=== PATIENT | female | born 1990 | race Caucasian/White ===

== ENCOUNTER 2020-12-05 11:57 | Emergency (ER) | payer BC ==
[~2020-12-05] VITALS: Ht 149.9 cm; Wt 99.0 kg
[2020-12-05] MEDS ORDERED: BACITRACIN ZINC TOPICAL OINT PACKET. TP ONE (13:00)
[2020-12-05] MEDS ORDERED: ACETAMINOPHEN 325 MG TABLET PO ONE (13:00)
[2020-12-05] MEDS ORDERED: IBUPROFEN 600 MG TABLET. PO ONE (13:00)
[2020-12-05] MEDS ORDERED: ceFAZolin IM 1 GM VIAL IM ONE (13:00)
--- NOTE | 2020-12-05 13:05 | PHYS DOC ---
Adult General Chief Complaint Chief Complaint: ANIMAL BITE HPI HPI Patient is a 30-year-old female who presents to the emergency department today stating that proximately 45 minutes prior to arrival her small dog bit her left hand. Patient states her dogs immunizations are up-to-date, patient states her last tetanus immunization was 1 year ago. Patient reports a 6 out of 10 pain. Patient states her hand feels a little numb and tingly since the bite. Patient denies any loss of movement of her left hand or fingers. Patient states it bled a little bit and then it has seemed to have clotted off since. Patient denies taking anything for pain prior to arrival to the ER. Patient states she did not wash any of the wounds prior to coming to the ER. Patient states she is a type I diabetic and reports a morning blood sugar of 132, states she takes Humalog for diabetes. Patient denies any other health history. Patient states she sees a Dr. Boom Montes in [place] for primary care. Patient reports a allergy to Stadol, hydrocodone, and Levemir. Patient denies any other physical complaints or physical symptoms. Review of Systems Review of Systems 14 body systems of review of systems have been reviewed. See HPI for pertinent positives and negative responses, otherwise all other systems are negative, nonpertinent or noncontributory. Current Medications Current Medications Current Medications Medications (Trade) Dose Ordered Sig/Anthony Start Time Stop Time Status Last Admin Dose Admin Acetaminophen (Tylenol) 650 mg 1X ONCE 12/05/20 13:00 12/05/20 13:01 UNV Bacitracin (Bacitracin Topical Pkt) 1 pkt 1X ONCE 12/05/20 13:00 12/05/20 13:01 UNV Cefazolin Sodium (Ancef Im) 1 gm 1X ONCE 12/05/20 13:00 12/05/20 13:01 UNV Ibuprofen (Motrin) 600 mg 1X ONCE 12/05/20 13:00 12/05/20 13:01 UNV Physical Exam Physical Exam Constitutional: Well developed, well nourished, no acute distress, non-toxic appearance. 22-year-old female in no apparent distress. HENT: Normocephalic, atraumatic. Eyes: Conjunctiva normal, no discharge. Neck: Normal range of motion. Cardiovascular: No cyanosis appreciated, distal cap refill less than 2 seconds. Lungs & Thorax: Patient is in no respiratory distress, no adventitious lung sounds appreciated audibly. Skin: Warm, dry, no erythema, no rash. See extremity note for skin assessment. Extremities: No tenderness, no cyanosis, no clubbing, ROM intact, no edema. Except for left hand fingers, patient has a 2 mm puncture wound to proximal first digit at finger web palmar aspect, small abrasion to first digit distal aspect ventral surface, small abrasion to middle finger middle phalanx ventral aspect, left thumb lateral aspect small abrasion, no bleeding appreciated, no swelling appreciated, full AROM/PROM of left hand fingers, distal cap refill is less than 2 seconds. No edema appreciated. Neurologic: Alert and oriented X 3, normal motor function, normal sensory function, no focal deficits noted. Psychologic: Affect normal, judgement normal, mood normal. EKG EKG [] Radiology/Procedures Radiology/Procedures [] Heart Score C/O Chest Pain: No Risk Factors: Risk Factors: DM, Current or recent (<one month) smoker, HTN, HLP, family history of CAD, obesity. Risk Scores: Risk Factors: DM, Current or recent (<one month) smoker, HTN, HLP, family history of CAD, obesity. Course & Med Decision Making Course & Med Decision Making Pertinent Labs and Imaging studies reviewed. (See chart for details) 30-year-old female, vital signs reviewed, presents emergency department after her dog bit her hand. The dog's immunizations are up-to-date, low likelihood of rabies infection, rabies prophylaxis not indicated. The patient's tetanus immunization was less than 1 year ago, Adacel DTaP not indicated today. Puncture wound and abrasions to left hand and digits thumb first finger middle finger consistent with dog bite. Will thoroughly irrigate and dress puncture wound and abrasions with bacitracin and Band-Aids. Will give Tylenol and Motrin p.o. for reported 6 out of 10 pain. Will give 1 g Ancef IM for antibiotic prophylaxis coverage, will prescribe Keflex for antibiotic prophylaxis coverage. Recommend daily cleansing and antibiotic application with bandages until healed, patient is a type I diabetic, will order bedside fingerstick blood sugar today in the ER. Will recommend strict follow-up with PCP for reexamination of dog bite wounds. X-ray imaging not indicated. Soft tissues of the hand remain soft, there is no concerning signs of compartment syndrome. Patient left hand soap and Betadine solution for 15 minutes, cleansed and dressed by ED nursing staff. The patient is bedside blood sugar was 164. Patient gave verbal understanding of discharge home instructions, antibiotic use, [id number] Motrin for pain, strict follow-up with primary care for reevaluation of dog bite wounds, daily cleansing and topical antibiotic ointment applications, patient had no further questions or concerns, patient was discharged home without incident. Dragon Disclaimer Dragon Disclaimer This electronic medical record was generated, in whole or in part, using a voice recognition dictation system. Departure Departure: Impression: Primary Impression: Dog bite of left hand Disposition: HOME / SELF CARE / HOMELESS Condition: GOOD Referrals: PCP,NO (PCP) Patient Instructions: Abrasions, Animal Bite, Puncture Wound Additional Instructions: You were seen today in the emergency department reporting that your dog that you on your left hand. There is a small puncture wound to your hand with minor abrasions to your fingers, you may use ice applications 30 minutes on 30 minutes off for pain and swelling over the next 24 to 48 hours, you may use [id number] Tylenol and/or Motrin for pain, please cleanse puncture wound and abrasions daily and apply antibiotic ointment with bandages until healed, please follow-up with your primary care physician Dr. Roni Montes in [facility] this week for reevaluation of your dog bite wound injuries, I have given you 1 g of Ancef intramuscular today in the emergency department for antibiotic prophylaxis, you do not have an infection, this was to help prevent any infection from starting. I am also starting you on a antibiotic called Keflex, you will take it 3 times a day for the next 10 days, this is also for antibiotic prophylaxis. You had indicated your tetanus immunization was less than 5 years ago, there was no indication for updating your tetanus immunization today in the emergency department. Please return to the emergency department for worsening symptoms or other concerns. EMERGENCY DEPARTMENT GENERAL DISCHARGE INSTRUCTIONS Thank you for coming to [facility] (ED) today and trusting us with you care. We trust that you had a positivie experience in our Emergency Department. If you wish to speak to the department management, you may call the director at [phone]. YOUR FOLLOW UP INSTRUCTIONS ARE FOLLOWS: 1. Do you have a private Doctor? If you do not have a private doctor, please ask for a resource list of physicians or clinics that may be able to assist you with follow up care. 2. The Emergency Physician has interpreted your x-rays. The X-Ray specialist will also review them. If there is a change in the findings, you will be notified in 48 hours when at all possible. 3. A lab test or culture has been done, your results will be reviewed and you will be notified if you need a change in treatment. ADDITIONAL INSTRUCTIONS AND INFORMATION: 1. Your care today has been supervised by a physician who is specially trained in emergency care. Many problems require more than one evaluation for a complete diagnosis and treatment. We recommend that you schedule your follow up appointment as recommended to ensure complete treatment of you illness or injury. If you are unable to obtain follow up care and continue to have a problem, or if your condition worsens, we recommend that you return to the ED. 2. We are not able to safely determine your condition over the phone nor are we able to give sound medical advice over the phone. For these safety reasons, if you call for medical advice we will ask you to come to the ED for further evaluation. 3. If you have any questions regarding these discharge instructions please call the ED at [phone]. SAFETY INFORMATION: In the interest of safety, wellness, and injury prevention; we encourage you to wear your sealbelt, if you smoke; quite smoking, and we encourage family to use a protective helmet for bicycling and other sporting events that present an increased risk for head injury. IF YOUR SYMPTOMS WORSEN OR NEW SYMPTOMS DEVELOP, OR YOU HAVE CONCERNS ABOUT YOUR CONDITION; OR IF YOUR CONDITION WORSENS WHILE YOU ARE WAITING FOR YOUR FOLLOW UP APPOINTMENT; EITHER CONTACT YOUR PRIMARY CARE DOCTOR, THE PHYSICIAN WHOSE NAME AND NUMBER YOU WERE GIVEN, OR RETURN TO THE ED IMMEDIATELY. Scripts Cephalexin (CEPHALEXIN) 500 Mg Capsule 1 CAP PO TID for dog bite wounds, #30 CAP 0 Refills Prov: RAUL HOBSON BUSINESS PROGRAMMER 12/05/20 Problem Qualifiers Primary Impression: Dog bite of left hand Encounter type: initial encounter Qualified Codes: S61.452A - Open bite of left hand, initial encounter; W54.0XXA - Bitten by dog, initial encounter RAUL HOBSON BUSINESS PROGRAMMER Dec 05, 2020 13:05
[2020-12-05] MEDS ORDERED: CEPH500C PO (14:51)
[2020-12-05 15:04] VITALS: BP 116/68
== END 2020-12-05 15:04 | disposition home or self-care (01) ==
LOC: ER 11:57
DX: S61.452A Open bite of left hand, initial encounter (principal); W54.0XXA Bitten by dog, initial encounter; Y93.89 Activity, other specified; Y92.89 Other specified places as the place of occurrence of the external cause; Y99.8 Other external cause status
CPT/HCPCS: 82947; 96372; 99283; J0690